=== PATIENT | male | born 1950 ===

== ENCOUNTER 2020-12-05 09:05 | Outpatient (CLI) | payer MEDICARE, SELFPAY | END 2020-12-05 09:06 | disposition home or self-care (01) | LOC: ANHCOVIDVC 09:05 | PROVIDERS: PCP Internal Medicine | DX: Z23 Encounter for immunization (principal) | CPT/HCPCS: 0001A; 91300 ==

== ENCOUNTER 2020-12-26 09:29 | Outpatient (CLI) | payer MEDICARE, SELFPAY | END 2020-12-26 09:30 | disposition home or self-care (01) | LOC: ANHCOVIDVC 09:30 | PROVIDERS: PCP Internal Medicine | DX: Z23 Encounter for immunization (principal) | CPT/HCPCS: 0002A; 91300 ==

== ENCOUNTER → 2021-04-24 08:25 | Outpatient (CLI) | payer MEDICARE, SELFPAY ==
[2021-04-24 18:39] LABS: SARS-CoV-2 RNA PCR Negative
== END ==
PROVIDERS: PCP Internal Medicine; Visit Provider Internal Medicine
DX: R68.89 Other general symptoms and signs (principal); Z20.822 Contact with and (suspected) exposure to COVID-19
CPT/HCPCS: C9803; U0003; U0005